=== PATIENT | female | born 1980 | race Two or more races ===

== ENCOUNTER 2022-08-08 07:48 | Day surgery (SDC) | payer OTHER ==
[~2022-08-08 07:48] MED LIST: ALLEGRA PO
== END 2022-08-08 21:30 | disposition home or self-care (01) ==
LOC: CIR.AMB 07:48
PROVIDERS: ATTEND Obstetrics & Gynecology
DX: O02.1 Missed abortion (principal); O72.2 Delayed and secondary postpartum hemorrhage; Z20.822 Contact with and (suspected) exposure to COVID-19; Z91.018 Allergy to other foods